=== PATIENT | female | born 1970 | race Caucasian/White ===

== ENCOUNTER → 2018-11-14 10:19 | Outpatient (CLI) | payer MEDICARE, MEDICAID, SELFPAY ==
[2018-11-14 10:23] LABS: Microscopic, Urine URINE MICROSCOPIC (MICROSCOPIC)
[2018-11-14 12:59] LABS: Appearance,Urine SL CLOUDY (Clear); Blood, Urine TRACE-I (Negative); Color,Urine YELLOW (Yellow); Glucose,Urine (UA) Negative (Negative); Ketones,Urine TRACE (Negative); Leukocyte Esterase,Urine 1+ (Negative); Nitrate,Urine Negative (Negative); PH,Urine 5.5 (5.0-8.5); Protein,Urine TRACE (Negative); Specific Gravity, Urine >= 1.030 (1.005-1.030); Urobilinogen,Urine 0.2 EU/dl (0.2)
[2018-11-14 13:04] LABS: Bilirubin,Urine Negative (Negative)
[2018-11-14 13:08] LABS: Bacteria,Urine 2+ /lpf; RBC,Urine Occasional #/hpf (0-3); Squamous Epithelial Cell,Urine Occasional #/hpf (0-5); WBC,Urine 20-50 #/hpf (0-3)
== END ==
PROVIDERS: Visit Provider Internal Medicine Adolescent Medicine
DX: R30.0 Dysuria (principal)
CPT/HCPCS: 81001; 87086; 87088; 87186

== ENCOUNTER → 2020-03-13 16:44 | Outpatient (CLI) | payer MEDICARE, MEDICAID, SELFPAY ==
[2020-03-13 17:33] LABS: Basophils # 0.1 K/mm3 (0-0.2); Basophils % 1.7 % (0.1-2.0); Eosinophils # 0.4 K/mm3 (0.0-0.4); Eosinophils % 4.6 % (0.1-12.0); Hematocrit 44.9 % (37.0-47.0); Hemoglobin 14.7 g/dL (12.2-16.2); Lymphocytes # 2.4 K/mm3 (0.7-4.5); Lymphocytes % 27.4 % (10-50); Mean Corpuscular HGB Conc 32.7 g/dL (31.8-35.4); Mean Corpuscular Hemoglobin 30.4 pg (27.0-31.2); Mean Corpuscular Volume 92.9 fl (81-99); Monocytes # 0.6 K/mm3 (0.1-1.0); Monocytes % 6.5 % (1.7-9.3); Neutrophils # 5.1 K/mm3 (1.8-7.8); Neutrophils % 59.8 % (37.0-80.0); Platelet Count 224 K/mm3 (142-424); Red Blood Count 4.83 M/mm3 (4.20-5.40); Red Cell Distribution Width 13.2 % (11.5-17.5); White Blood Count 8.6 K/mm3 (4.8-10.8)
[2020-03-13 18:20] LABS: Alanine Aminotransferase 19 U/L (12-78); Albumin Level 4.9 g/dl (3.5-5.0); Albumin/Globulin Ratio 1.5 (1.1-1.8); Alkaline Phosphatase 131 U/L (38-126); Aspartate Amino Transferase 38 U/L (14-36); Bilirubin,Total 0.4 mg/dl (0.2-1.3); Blood Urea Nitrogen 42 mg/dl (7-17); Calcium 10.3 mg/dl (8.4-10.2); Carbon Dioxide 29 mmol/L (22.0-30.0); Chloride 101 mmol/L (98-107); Estimated Glomerular Filt Rate 48 ml/min (>60); GFR (African American) 58 ML/MIN (>60); Globulin 3.3 g/dL (1.3-3.2); Glucose 106 mg/dl (74-100); Sodium 139 mmol/L (136-145); Total Protein,Serum 8.2 g/dl (6.3-8.2)
[2020-03-13 18:50] LABS: Valproic Acid, (Depakene) 105.2 ug/ml (50-100)
[2020-03-13 19:54] LABS: Hemoglobin A1C 5.5 % (4.0-6.0)
== END ==
PROVIDERS: PCP Internal Medicine Adolescent Medicine; Visit Provider Internal Medicine Adolescent Medicine
DX: G40.309 Generalized idiopathic epilepsy and epileptic syndromes, not intractable, without status epilepticus (principal); Z79.899 Other long term (current) drug therapy
CPT/HCPCS: 36415; 80053; 80164; 83036; 85025

== ENCOUNTER → 2020-07-08 11:22 | Outpatient (CLI) | payer MEDICARE, MEDICAID, SELFPAY ==
[2020-07-08 11:58] LABS: Basophils # 0.1 K/mm3 (0-0.2); Basophils % 0.5 % (0.1-2.0); Eosinophils # 0.4 K/mm3 (0.0-0.4); Eosinophils % 3.8 % (0.1-12.0); Hematocrit 42.4 % (37.0-47.0); Hemoglobin 13.8 g/dL (12.2-16.2); Lymphocytes # 1.7 K/mm3 (0.7-4.5); Lymphocytes % 16.6 % (10-50); Mean Corpuscular HGB Conc 32.5 g/dL (31.8-35.4); Mean Corpuscular Volume 89.2 fl (81-99); Mean Platelet Volume 7.4 fl (7.4-10.4); Monocytes # 0.8 K/mm3 (0.1-1.0); Monocytes % 8.2 % (1.7-9.3); Neutrophils # 7.3 K/mm3 (1.8-7.8); Neutrophils % 70.9 % (37.0-80.0); Platelet Count 242 K/mm3 (142-424); Red Blood Count 4.75 M/mm3 (4.20-5.40); Red Cell Distribution Width 13.6 % (11.5-17.5); White Blood Count 10.3 K/mm3 (4.8-10.8)
[2020-07-08 12:34] LABS: Chloride 105 mmol/L (98-107)
[2020-07-08 12:35] LABS: Potassium 5.2 mmoL/L (3.5-5.1); Sodium 139 mmol/L (136-145)
[2020-07-08 12:37] LABS: Alanine Aminotransferase 16 U/L (12-78); Alkaline Phosphatase 96 U/L (38-126); Aspartate Amino Transferase 22 U/L (14-36); Bilirubin,Total 0.3 mg/dl (0.2-1.3); Blood Urea Nitrogen 36 mg/dl (7-17); Estimated Glomerular Filt Rate 37 ml/min (>60); GFR (African American) 44 ML/MIN (>60); Glucose 132 mg/dl (74-100); Lipase 98 U/L (23-300)
[2020-07-08 12:38] LABS: Albumin Level 4.3 g/dl (3.5-5.0); Albumin/Globulin Ratio 1.7 (1.1-1.8); Calcium 9.4 mg/dl (8.4-10.2); Globulin 2.6 g/dL (1.3-3.2); Total Protein,Serum 6.9 g/dl (6.3-8.2)
[2020-07-08 15:25] LABS: Anion Gap 14.2 mEq/L (5-15); Carbon Dioxide 25 mmol/L (22.0-30.0)
[2020-07-09 15:12] LABS: Hemoglobin A1C 5.3 % (4.0-6.0)
== END ==
PROVIDERS: Visit Provider Internal Medicine Adolescent Medicine
DX: R10.13 Epigastric pain (principal); R73.9 Hyperglycemia, unspecified
CPT/HCPCS: 36415; 80053; 83036; 83690; 85025

== ENCOUNTER → 2021-04-06 15:16 | Outpatient (CLI) | payer MEDICARE, MEDICAID, SELFPAY ==
--- NOTE | 2021-04-06 15:23 | MM_ITS ---
PROCEDURE: MM DIG SCREENING MAMM BI W/CAD Digital Breast Tomosynthesis Included CLINICAL INDICATION: SCREENING The baseline exam, patient without complaints COMPARISON: No exams were available for comparison TECHNIQUE: Standard CC and MLO images and 3D Tomosynthesis was obtained. R2 CAD reviewed. FINDINGS: The breasts are composed primarily of minimal fibroglandular elements in the subareolar regions bilaterally. There are couple of benign-appearing microcalcifications in each breast there are 2 small benign-appearing nodular densities left breast. CAD markings were reviewed and they appear to be benign. IMPRESSION: Fatty type breast parenchyma with no suspicious lesions seen BI-RAD Category: 2 Benign Finding(s) FOLLOW-UP: 1YR 1 Year Follow-up (A letter has been sent to the patient regarding results of the study.) Dictated by: Dr. Singh Jay MD 04/08/2021 08:18 Dr. Singh Jay MD in [place] 04/08/2021 08:18
--- NOTE | 2021-04-06 15:23 | XR_ITS ---
PROCEDURE: XR KNEE RT 3V CLINICAL INDICATION: RT KNEE PAIN COMPARISON: CR [id number] KNEE-3 VIEWS-RT from 11/16/2013 CR [id number] XR knee LT 3V from 04/23/2018 FINDINGS: No fracture or dislocation. No lytic or blastic change. Mild osteopenia. Low-lying patella is noted. The joint spaces are otherwise well-preserved. No significant degenerative/arthritic changes. No erosive changes evident. Other findings:None. IMPRESSION: No acute findings. Dictated by: Hailey Salinas 04/06/2021 17:06 Hailey Salinas in [facility] 04/06/2021 17:06
== END ==
PROVIDERS: PCP Internal Medicine Adolescent Medicine; Visit Provider Internal Medicine Adolescent Medicine
DX: Z12.31 Encounter for screening mammogram for malignant neoplasm of breast (principal); M25.561 Pain in right knee
CPT/HCPCS: 73562; 77063; 77067

== ENCOUNTER 2022-03-01 12:44 | Emergency (ER) | payer MEDICARE, MEDICAID, SELFPAY ==
[2022-03-01] VITALS (10 sets, daily range): BP systolic 80–138; BP diastolic 48–97; PULSE 63–79; RESP 14–23; TEMP 36.7–36.8; O2SAT 94–99; BMI 29.9
--- NOTE | 2022-03-01 12:51 | XR_ITS ---
FINAL REPORT CLINICAL HISTORY: fever COMPARISON: 04/23/2018 FINDINGS: The heart size is normal. The mediastinum is normal. There is no focal infiltrate or edema. There are no pleural effusions. There is no pneumothorax. There is no osseous abnormality. IMPRESSION: No acute cardiopulmonary process Reviewed, Interpreted and Dictated by Taj You III, MD Transcribed by Дмитрий Lyles Authenticated and [facility]
--- NOTE | 2022-03-01 12:51 | ECG_ITS ---
APPROVED REPORT Exam: Resting ECG HR:76 bpm ECG Measurements Heart Rate 76 AXES NC 121 P 23 QRSd 101 QRS 92 QT 386 T 33 QTc 416 Conclusion SINUS RHYTHM POSSIBLE LEFT ATRIAL ENLARGEMENT [-0.1mV P-WAVE IN V1/V2] BORDERLINE RIGHT AXIS DEVIATION [QRS AXIS > 90] LOW QRS VOLTAGE IN PRECORDIAL LEADS [QRS DEFLECTION < 1.0 mV IN CHEST LEADS] NONSPECIFIC T-WAVE ABNORMALITY BORDERLINE ECG UNCONFIRMED REPORT Electronically signed by : Luis Armando Burroughs MD 03/02/2022 22:18:19
--- NOTE | 2022-03-01 12:52 | HMH.EDGENADL ---
ED Disposition Clinical Impression: Febrile illness, Urinary tract infection in female Disposition: Home, Self-Care Condition on Discharge: Good Instructions: DI for Urinary Tract Infection (UTI), DI for Fever (Symptom) -- Adult Additional Instructions: You have been evaluated for fever, UTI. Please take the biotics as prescribed. Take Tylenol and Motrin every 4-6 hours. Follow-up with your primary care doctor in 1 to 2 days for symptom recheck. Stay hydrated. Return to the emergency department at once for any new or worsening symptoms, cough, shortness of breath, chest pain, other concerns. Prescriptions: cephALEXin [cephALEXin 500mg capsule*] 500 mg PO Q6H #20 cap Transmission Status: [facility] Ibuprofen [Ibuprofen 600mg Tablet] 600 mg PO Q8 #12 tab Transmission Status: Received by [facility] ondansetron HCL [Ondansetron 4mg tab*] 4 mg PO Q6 PRN #12 tab PRN Reason: Nausea Transmission Status: [facility] Referrals: Provider,Referral, [Primary Care Provider] - Time of Disposition: 16:47 - Critical Care Critical Care Time: No Attestation: On , the high probability of a clinically significant, sudden or life threatening deterioration of the following system(s) required my full and direct attention, intervention and personal management. The time I documented below is in addition to time spent performing reported procedures but includes the following listed in this critical care notation. Medical Decision Making - Medical Records Medical records reviewed: Yes: I reviewed the patient's medical records. - [place] Inquiry Pt receiving controlled substance: No Vital Signs: 03/01/22 12:45 03/01/22 13:00 03/01/22 13:30 Temperature 98.3 F Temperature Source Oral Pulse Rate 74 68 Pulse Rate [Right Radial] 75 Respiratory Rate 16 16 16 Blood Pressure 124/77 119/74 Blood Pressure [Right Arm] 129/68 Blood Pressure Mean 92 95 Blood Pressure Mean [Right Arm] 88 Blood Pressure Source [Right Arm] Automatic Cuff Blood Pressure Position [Right Arm] Sitting 02 Sat by Pulse Oximetry 98 96 96 Oxygen Delivery Method Room Air 03/01/22 14:00 03/01/22 14:30 03/01/22 15:01 Temperature Temperature Source Pulse Rate 73 68 63 Pulse Rate [Right Radial] Respiratory Rate 18 14 20 Blood Pressure 135/85 138/97 H 84/65 L Blood Pressure [Right Arm] Blood Pressure Mean 103 110 71 Blood Pressure Mean [Right Arm] Blood Pressure Source [Right Arm] Blood Pressure Position [Right Arm] 02 Sat by Pulse Oximetry 94 L 96 95 Oxygen Delivery Method 03/01/22 15:31 Temperature Temperature Source Pulse Rate 79 Pulse Rate [Right Radial] Respiratory Rate 20 Blood Pressure 80/48 L Blood Pressure [Right Arm] Blood Pressure Mean 58 Blood Pressure Mean [Right Arm] Blood Pressure Source [Right Arm] Blood Pressure Position [Right Arm] 02 Sat by Pulse Oximetry 99 Oxygen Delivery Method - Lab Data Lab Results 03/01/22 12:51: Urine Color Yellow, Urine Appearance Clear, Urine pH 5.5, Ur Specific [place] >= 1.030, Urine Protein Negative, Urine Glucose (UA) Negative, Urine Ketones Negative, Urine Blood 3+, Urine Nitrate Positive, Urine Bilirubin Negative, Urine Urobilinogen 1.0, Ur Leukocyte Esterase 1+ A 03/01/22 12:51: Sodium 139, Potassium 4.7, Chloride 106, Carbon Dioxide 25, Anion Gap 12.7, BUN 44 H, Creatinine 1.50 H, Estimated Creat Clear 57, Estimated GFR 37 L, Est GFR ( Amer) 44 L, Glucose 162 H, Calcium 9.7, Total Bilirubin 0.4, AST 33, ALT 19, Alkaline Phosphatase 108, Troponin I < 0.01, Total Protein 7.5, Albumin 4.5, Globulin 3.0, Albumin/Globulin Ratio 1.5, Lipase 132 03/01/22 13:15: WBC 7.2, RBC 4.52, Hgb 13.4, Hct 37.8, MCV 83.7, MCH 29.6, MCHC 35.3, RDW 14.1, Plt Count 215, MPV 6.7 L, Neut % (Auto) 63.3, Lymph % (Auto) 24.8, Lamb % (Auto) 5.9, Eos % (Auto) 5.8, Baso % (Auto) 0.3, Neut # (Auto) 4.6, Lymph # (Aut
[2022-03-01 13:07] LABS: Chloride 106 mmol/L (98-107); Sodium 139 mmol/L (136-145)
[2022-03-01 13:08] LABS: Potassium 4.7 mmoL/L (3.5-5.1)
[2022-03-01 13:10] LABS: Alanine Aminotransferase 19 U/L (12-78); Alkaline Phosphatase 108 U/L (38-126); Anion Gap 12.7 mEq/L (5-15); Aspartate Amino Transferase 33 U/L (14-36); Bilirubin,Total 0.4 mg/dl (0.2-1.3); Blood Urea Nitrogen 44 mg/dl (7-17); Carbon Dioxide 25 mmol/L (22.0-30.0); Creatinine Clearance Estimated 57 mL/min (50-200); Estimated Glomerular Filt Rate 37 ml/min (>60); GFR (African American) 44 ML/MIN (>60); Lipase 132 U/L (23-300)
[2022-03-01 13:11] LABS: Albumin Level 4.5 g/dl (3.5-5.0); Albumin/Globulin Ratio 1.5 (1.1-1.8); Calcium 9.7 mg/dl (8.4-10.2); Glucose 162 mg/dl (74-100); Total Protein,Serum 7.5 g/dl (6.3-8.2)
[2022-03-01 13:23] LABS: Troponin I < 0.01 ng/ml (0.00-0.034)
[2022-03-01 13:25] LABS: Basophils % 0.3 % (0.1-2.0); Eosinophils # 0.4 K/mm3 (0.0-0.4); Eosinophils % 5.8 % (0.1-12.0); Hematocrit 37.8 % (37.0-47.0); Hemoglobin 13.4 g/dL (12.2-16.2); Lymphocytes # 1.8 K/mm3 (0.7-4.5); Lymphocytes % 24.8 % (10-50); Mean Corpuscular HGB Conc 35.3 g/dL (31.8-35.4); Mean Corpuscular Hemoglobin 29.6 pg (27.0-31.2); Mean Corpuscular Volume 83.7 fl (81-99); Mean Platelet Volume 6.7 fl (7.4-10.4); Monocytes # 0.4 K/mm3 (0.1-1.0); Monocytes % 5.9 % (1.7-9.3); Neutrophils # 4.6 K/mm3 (1.8-7.8); Neutrophils % 63.3 % (37.0-80.0); Platelet Count 215 K/mm3 (142-424); Red Blood Count 4.52 M/mm3 (4.20-5.40); Red Cell Distribution Width 14.1 % (11.5-17.5); White Blood Count 7.2 K/mm3 (4.8-10.8)
[2022-03-01 14:22] LABS: Coronavirus 19, PCR Not Detected (NotDetected); Influenza A, PCR Not Detected (NotDetected); Influenza B, PCR Not Detected (NotDetected)
[2022-03-01 16:08] LABS: Microscopic, Urine URINE MICROSCOPIC (MICROSCOPIC)
[2022-03-01 16:18] LABS: Appearance,Urine CLEAR (Clear); Bilirubin,Urine Negative (Negative); Blood, Urine 3+ (Negative); Color,Urine YELLOW (Yellow); Glucose,Urine (UA) Negative (Negative); Ketones,Urine Negative (Negative); Leukocyte Esterase,Urine 1+ (Negative); Nitrate,Urine POSITIVE (Negative); PH,Urine 5.5 (5.0-8.5); Protein,Urine Negative (Negative); Specific Gravity, Urine >= 1.030 (1.005-1.030)
--- NOTE | 2022-03-01 16:30 | PC.NURSE ---
contacted to check on status of u/a results, states they are about to release results now
[2022-03-01 18:13] LABS: Troponin I < 0.01 ng/ml (0.00-0.034)
[2022-03-01 18:27] LABS: Bacteria,Urine 4+ /lpf; Mucus,Urine 1+ /lpf
== END 2022-03-01 17:05 | disposition home or self-care (01) ==
PROVIDERS: Emergency Provider Emergency Medicine
DX: R50.9 Fever, unspecified (principal); N39.0 Urinary tract infection, site not specified; Z88.0 Allergy status to penicillin
CPT/HCPCS: 36415; 71045; 80053; 81001; 83690; 84484; 85025; 87086; 87088; 87186; 93005; 99283; C9803; U0003; U0005

== ENCOUNTER → 2022-05-11 10:49 | Outpatient (CLI) | payer MEDICARE, MEDICAID, SELFPAY ==
--- NOTE | 2022-05-11 10:54 | MM_ITS ---
PROCEDURE INFORMATION: Exam: MG Bilateral Screening 3D Mammography Exam date and time: 05/11/2022 10:53 AM Age: 52 years old Clinical indication: Screening. No family history of breast cancer. TECHNIQUE: Imaging protocol: Bilateral Screening tomosynthesis and 2D mammography including computer-aided detection (CAD) when performed. Limited positioning related to mobility impairment. COMPARISON: MG MM DIG SCREENING MAMM BI W/CAD 04/06/2021 3:33 PM FINDINGS: MAMMOGRAPHY: Breast composition: There are scattered areas of fibroglandular density. Mass: No suspicious mass. Architectural distortion: None. Calcifications: No suspicious calcifications. Asymmetric density: None. Skin thickening: None. Axillary adenopathy: None. Other: Some limitation in the outer right CC due to artifact, with technologist notation regarding limitations related to patient mobility. This accentuates the importance of clinical breast exam in the outer aspect of the right breast, and sonography could be added as well, if clinically indicated. IMPRESSION: see comment No mammographic evidence of malignancy. Annual screening is recommended unless otherwise clinically indicated. ASSESSMENT: BI-RADS Category 1: Negative
== END ==
PROVIDERS: Visit Provider Internal Medicine Adolescent Medicine
DX: Z12.31 Encounter for screening mammogram for malignant neoplasm of breast (principal)
CPT/HCPCS: 77063; 77067

== ENCOUNTER → 2023-02-22 10:05 | Outpatient (CLI) | payer MEDICARE, MEDICAID, SELFPAY ==
--- NOTE | 2023-02-22 10:10 | XR_ITS ---
FINAL REPORT CLINICAL HISTORY: LT ANKLE PAIN with swelling FINDINGS: Three views of the left foot show no evidence of acute displaced fracture or dislocation of the visualized bony architecture. 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 There is flattening of the heads of the 3rd and 4th metatarsals, that may be related to remote fracture or avascular necrosis. There are scattered mild degenerative changes most pronounced in the 1st digit. 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 Reviewed, Interpreted and Dictated by Maia Darby MD Transcribed by Soraya Cooley Authenticated and . [facility]
--- NOTE | 2023-02-22 10:10 | XR_ITS ---
FINAL REPORT CLINICAL HISTORY: LT ANKLE PAIN with swelling FINDINGS: Three views of the left ankle show no evidence of acute displaced fracture or dislocation of the visualized bony architecture. The joint spaces appear normal. Osteopenia is present. IMPRESSION: No acute bony abnormality identified. Reviewed, Interpreted and Dictated by Maia Darby MD Transcribed by Soraya Cooley Authenticated and [facility]
== END ==
PROVIDERS: PCP Nurse Practitioner Family; Visit Provider Physician Assistant
DX: M25.572 Pain in left ankle and joints of left foot (principal)
CPT/HCPCS: 73610; 73630

== ENCOUNTER 2024-06-26 15:34 | Outpatient (CLI) | payer MEDICARE, MEDICAID, SELFPAY ==
--- NOTE | 2024-06-26 15:38 | MM_ITS ---
PROCEDURE INFORMATION: Exam: MG Bilateral Screening 3D Mammography Exam date and time: 06/26/2024 3:24 PM Age: 54 years old Clinical indication: Screening examination. TECHNIQUE: Imaging protocol: Bilateral Screening tomosynthesis and 2D mammography including computer-aided detection (CAD) when performed. These are the best images possible, as the patient had trouble standing. COMPARISON: 1. MG MM DIG SCREENING MAMM BI W/CAD 05/11/2022 10:53 AM 2. MG MM DIG SCREENING MAMM BI W/CAD 04/06/2021 3:33 PM FINDINGS: MAMMOGRAPHY: Breast composition: The breasts are heterogeneously dense, which may obscure small masses. Mass: None. Architectural distortion: None. Calcifications: No suspicious calcifications. Asymmetric density: None. Skin thickening: None. Axillary adenopathy: None. Other findings: Limited study secondary to patient mobility. Correlation with a physical exam is important. IMPRESSION: No mammographic evidence of malignancy. Annual screening is recommended unless otherwise clinically indicated. ASSESSMENT: BI-RADS Category 1: Negative.
== END 2024-06-26 23:59 | disposition home or self-care (01) ==
LOC: RAD 15:35
PROVIDERS: PCP Internal Medicine Adolescent Medicine; Visit Provider Nurse Practitioner Family
DX: Z12.31 Encounter for screening mammogram for malignant neoplasm of breast (principal)
CPT/HCPCS: 77063; 77067

== ENCOUNTER 2024-09-16 12:01 | Emergency (ER) | payer MEDICARE, MEDICAID, SELFPAY ==
[2024-09-16] VITALS (9 sets, daily range): BP systolic 49–153; BP diastolic 31–136; PULSE 110–130; RESP 29–37; TEMP 37.7–38.3; O2SAT 81–95; BMI 30.7
--- NOTE | 2024-09-16 12:10 | ECG_ITS ---
APPROVED REPORT Exam: Resting ECG HR:129 bpm ECG Measurements Heart Rate 129 AXES SD 104 P 38 QRSd 71 QRS 118 QT 269 T 14 QTc 345 Conclusion SINUS TACHYCARDIA WITH SHORT SD INTERVAL POSSIBLE RIGHT VENTRICULAR HYPERTROPHY [SOME/ALL OF: PROMINENT R IN V1, LATE TRANSITION, RAD, RAMIREZ, SSS] ABNORMAL ECG No STEMI Electronically signed by : EMA JACOB, 09/17/2024 02:54:56
[2024-09-16 12:22] LABS: Coronavirus 19, PCR Not Detected (NotDetected); Influenza B, PCR Not Detected (NotDetected)
--- NOTE | 2024-09-16 12:25 | PC.NURSE ---
Dr. Michelle at bedside. Pt is unresponsive, coarse crackles and low sat. Pt placed on 4 lpm nc. Called radiology for stat cts. Pt is very difficult to obtain iv & and labs. Dr. Michelle is preparing for u/s IV placement. RT is attempting to obtain ABG
--- NOTE | 2024-09-16 12:42 | CT_ITS ---
PROCEDURE INFORMATION: Exam: CT Head Without Contrast Exam date and time: 09/16/2024 12:57 PM Age: 54 years old Clinical indication: Altered mental status/memory loss; Additional info: AMS TECHNIQUE: Imaging protocol: Computed tomography of the head without contrast. Radiation optimization: All CT scans at this facility use at least one of these dose optimization techniques: automated exposure control; mA and/or kV adjustment per patient size (includes targeted exams where dose is matched to clinical indication); or iterative reconstruction. COMPARISON: No relevant prior studies available. FINDINGS: Brain: There is no acute intracranial hemorrhage, mass effect, or midline shift. Moderate advanced for age cerebral and cerebellar substance loss is noted. Cerebral ventricles: There is mild ex vacuo dilation of the lateral and 3rd ventricles. Paranasal sinuses: There is no acute sinusitis. A small mucous retention cyst is noted in the right maxillary sinus. Mastoid air cells: The mastoid air cells are clear. Orbital cavities: The orbital structures are unremarkable. Bones: Hyperostosis frontalis interna is noted. Soft tissues: Unremarkable. IMPRESSION: 1. No acute intracranial abnormality. 2. Moderate advanced for age substance loss.
--- NOTE | 2024-09-16 12:43 | XR_ITS ---
PROCEDURE INFORMATION: Exam: XR Chest Exam date and time: 09/16/2024 12:51 PM Age: 54 years old Clinical indication: Dyspnea TECHNIQUE: Imaging protocol: Radiologic exam of the chest. Views: 1 view. COMPARISON: CR XR CHEST PORTABLE 03/01/2022 1:12 PM FINDINGS: Lungs: There is increased opacification within the right lung apex. This may be predominantly related to overlapping osseous and soft tissue structures, but underlying consolidation could be present. Follow-up PA and lateral radiographs are suggested. Pleural spaces: No pleural effusion. No pneumothorax. Heart/Mediastinum: No significant cardiac silhouette enlargement. Bones/joints: Unremarkable. IMPRESSION: There is increased opacification within the right lung apex. This may be predominantly related to overlapping osseous and soft tissue structures, but underlying consolidation could be present. Follow-up PA and lateral radiographs are suggested.
[2024-09-16] MEDS: LACTATED RINGERS 1000ML 1,710 ML 855 ML IV (12:45)
--- NOTE | 2024-09-16 12:45 | ED_ITS ---
Discharge Plan Disposition Chief Complaint: Altered Mental Status Prescriptions Prescriptions: No Action meloxicam 15 MG Tablet 15 mg PO BID tramadol [Ultram] 50 MG Tablet 50 mg PO BID gabapentin 300 MG Capsule 300 mg PO TID escitalopram oxalate [Lexapro] 10 MG Tablet 10 mg PO DAILY divalproex [Depakote ER] 250 MG Tablet 250 mg PO BID omeprazole 20 MG Tablet.Dr 20 mg PO DAILY ondansetron HCl 4 MG tablet 4 mg PO Q6 PRN (Reason: Nausea) Qty: 12 0RF ibuprofen 600 MG tablet 600 mg PO Q8 Qty: 12 0RF Referrals Follow up/Referrals: Luis Armando Burroughs MD [Primary Care Provider] - See instructions Clinical Impressions Clinical Impression: Septic shock, Acute encephalopathy, DENISE (acute kidney injury), Acute uremia, Injury of liver, Myocardial injury, Acute hypoxemic respiratory failure, Influenza A Instructions Patient Instructions: DI for Altered Mental Status Print Language Print Language: Welsh Discharge ED Provider: Tiburcio Michelle General Adult HPI General Chief complaint: Altered Mental Status Stated complaint: incoherent, congestion, fever, heavy breathing Time Seen by Provider: 09/16/24 12:05 Mode of Arrival: Wheelchair Source of Information: Relative and Medical Record Limitations: Altered Mental Status Description of Symptoms (Recalled from ER Triage Doc. by RN): Pt brought to ER by family & etienne. States that pt has been having nausea and diarrhea for a few days. She has also fallen during the night on (09/13) and family had to assist her up. States pt has not been responding since 0900 this am. States she is very lethargic. She has a hx of kidney dz. Pt has voided on herself. Family states pt has mental delayes but typically ambulates on own and does have speech. Pt has opened eyes and squeezes hand but with pain response and is not following History of Present Illness HPI narrative: Patient is a 54-year-old who has a history of cognitive delay but is brought in by her family and her caregiver for sudden and acute change in her mental status over the last few hours. She was very sick with nausea and diarrhea the last few days but had profound change in mental status this morning. She has been moving all of her extremity warning. No head injuries that they are definitively aware of but she did fall out of bed a few days ago. She is not on any anticoagulants or antiplatelet agents. No cough that were aware of. She has had a positive contact with the flu recently. Also has a history of urinary tract infections in the past. Related Data Home Medications ?Medication ?Instructions ?Recorded ?Confirmed divalproex 250 mg tablet,extended 250 mg PO BID mood 04/23/18 04/23/18 release 24 hr (Depakote ER) escitalopram oxalate 10 mg tablet 10 mg PO DAILY mood 04/23/18 04/23/18 (Lexapro) gabapentin 300 mg capsule 300 mg PO TID uknown 04/23/18 04/23/18 meloxicam 15 mg tablet 15 mg PO BID Pain 04/23/18 04/23/18 omeprazole 20 mg tablet,delayed 20 mg PO DAILY stomach 04/23/18 04/23/18 release tramadol 50 mg tablet (Ultram) 50 mg PO BID Pain 04/23/18 04/23/18 Previous Rx's ?Medication ?Instructions ?Recorded ibuprofen 600 mg tablet 600 mg PO Q8 #12 tabs 03/01/22 ondansetron HCl 4 mg tablet 4 mg PO Q6 PRN Nausea #12 tabs 03/01/22 Allergies Allergy/AdvReac Type Severity Reaction Status Date / Time Penicillins (PENICILLINS) Allergy Mild Verified 03/01/22 13:37 [facility] Disclaimer: The information contained in this section may have been updated after the patient was seen, as this information can be updated by other users. Social History Smoking Status: Unknown if ever smoked alcohol intake: never current occupational status: other Travel in the last 8 weeks: None Other Medical History Have you received the Flu Vaccine for this season: No Have you received the Pneumonia Vaccine: No ROS Obtained: Yes All systems reviewed & no additional complaints except as documented Physical Exam General General appearance: obtunded and other (Patient appears very ill and obtunded) Respiratory Respiratory exam: Present other (Course breath sounds unable to get a good pleth given the patient's peripheral perfusion this very poor) Cardiovascular Cardiovascular exam: Present other (Cool extremities that are cyanotic and mottled) Neurological Exam Neurological exam: Present alert and oriented X3 Expanded Neurological Exam Coma scale eye opening: Spontaneous Coma scale motor response: Withdraws to pain Coma scale verbal response: None Coma scale total: 9 Medical Decision Making Medical Records Screening: Per USPSTF and CDC recommendations, given the prevalence of disease in our region, it is our hospital?s policy to screen for HIV and viral Hepatitis for all patients aged 18 and over and those with ongoing risk factors. [place] Inquiry Pt receiving controlled substance: No Vital Signs: 09/16/24 12:03 09/16/24 13:21 09/16/24 13:31 Temperature 99.9 F H Temperature Source Axillary Pulse Rate [Right] 130 H Respiratory Rate 29 H 37 H 34 H Blood Pressure 153/136 H 131/115 H Blood Pressure [Right Arm] 104/81 L Blood Pressure Mean [Right Arm] 88 Blood Pressure Source [Right Arm] Automatic Cuff 02 Sat by Pulse Oximetry 81 L Oxygen Delivery Method Room Air Non-Rebreather Non-Rebreather Oxygen Flow Rate (LPM) 15 Lab Data Lab results reviewed: Yes I reviewed the patient's lab results. Lab Results 09/16/24 12:11: SARS-CoV-2 (PCR) Not detected, Influenza A Untype (PCR) Detected A, Influenza Type B (PCR) Not detected 09/16/24 12:33: WBC 11.2 H, RBC 4.51, Hgb 13.2, Hct 40.4, MCV 89.6, MCH 29.3, MCHC 32.7, RDW 14.5, Plt Count 174, MPV 10.8 H, Neut % (Auto) 59.8, Lymph % (Auto) 24.2, [place] % (Auto) 13.3 H, Eos % (Auto) 0.4, Baso % (Auto) 0.4, Neut # (Auto) 6.7, Lymph # (Auto) 2.7, [place] # (Auto) 1.5 H, Eos # (Auto) 0.0, Baso # (Auto) 0.1, Sodium 133 L, Potassium 5.5 H, Chloride 98, Carbon Dioxide 17 L, [place] 23.5 H, BUN 111 H*, Creatinine 9.10 H, Estimated Creat Clear 9, E stimated GFR 5 L*, Est GFR ( Amer) 5 L*, Glucose 124 H, Lactate 5.5 H, C alcium 7.9 L, Total Bilirubin 0.9, AST 498 H*, ALT 126 H, Alkaline Phosphatase 139 H, Troponin I 0.13 H, Total Protein 5.9 L, Albumin 3.5, Globulin 2.4, Albumin/Globulin Ratio 1.5 09/16/24 12:44: Urine Color Dark yellow, Urine Appearance Turbid, Urine pH 5.5, Ur Specific [place] 1.025, Urine Protein 1+ A, Urine Glucose (UA) Negative, Urine Ketones Negative, Urine Blood 3+ A, Urine Nitrate Negative, Urine Bilirubin 2+ A, Urine Urobilinogen 0.2, Ur Leukocyte Esterase 2+ A, Urine RBC 10-20, Urine WBC 50-100, Ur Squamous Epith Cells 5-10, Urine Bacteria 4+, Fine Granular Casts 3-5 09/16/24 12:33 09/16/24 12:33 Orders (Tests/Meds): ED MEDICATIONS Generic Name Dose Route Start Last Admin Trade Name Freq PRN Reason Stop Dose Admin Vancomycin/PEG/NADA/Lysine/Water 1.75 gm in 350 mls @ 175 mls/hr 09/16/24 13:00 Vancomycin 1.75gm/350ml (Peg) Premix IV 09/16/24 14:59 ONCE ONE Lactated Ringer's 1,710 mls @ 855 mls/hr 09/16/24 12:59 09/16/24 12:45 Lactated Ringer's 1000 Ml Bag 30 ml/kg infuse over 2 hr (1710 ml) 09/16/24 14:58 855 mls/hr IV Administration .Q2H ONE Discontinued Medications Generic Name Dose Route Start Last Admin Trade Name Freq PRN Reason Stop Dose Admin Acetaminophen 1,000 mg 09/16/24 12:42 09/16/24 13:51 Acetaminophen 1,000mg/100ml Vial IV 09/16/24 12:43 1,000 mg ONCE ONE Administration Lactated Ringer's 1,000 mls @ 999 mls/hr 09/16/24 12:45 Lactated Ringer's 1000 Ml Bag IV 09/16/24 13:45 .Q1H1M ZANDRA Cefepime HCl 2 gm/ Sodium 100 mls @ 200 mls/hr 09/16/24 12:44 09/16/24 13:10 Chloride IV 09/16/24 13:13 200 mls/hr ONCE ONE Administration Metronidazole 500 mg in 100 mls @ 100 mls/hr 09/16/24 12:44 09/16/24 13:51 Flagyl 500mg/100ml Ivpb IV 09/16/24 13:43 100 mls/hr ONCE ONE Administration Miscellaneous 1 each 09/16/24 12:45 Vancomycin Consult Request NOTAPPLIC 10/16/24 12:44 CONSULT PHARMACY ZANDRA ORDERS Category Date Time Status CT head/brain wo con Stat Cat Scan 09/16/24 12:42 Completed CXR --portable [XR chest portable] Stat Exams 09/16/24 12:43 Completed CBC w/Auto Diff [Complete Blood Count Auto Diff] Stat Lab 09/16/24 12:33 Completed CMP [Comprehensive Metabolic Panel] Stat Lab 09/16/24 12:33 Completed Diarrhea 23 Panel, PCR Stat Lab 09/16/24 12:43 Ordered HIV Combo Stat Lab 09/16/24 12:33 Received Hep C Ab with Reflex to RNA Stat Lab 09/16/24 12:33 Received Lactic Acid Stat Lab 09/16/24 12:33 Completed Rapid PCR Covid and Flu A/B Stat Lab 09/16/24 12:11 Completed Trop I [Troponin I] Stat Lab 09/16/24 12:33 Completed Troponin I Q3H Lab 09/16/24 15:45 Ordered Troponin I Q3H Lab 09/16/24 18:45 Ordered UA [Urinalysis and Microscopic] Stat Lab 09/16/24 12:44 Completed Blood Culture Stat Micro 09/16/24 12:33 Received Urine Culture Stat Micro 09/16/24 12:44 Received ABG [Arterial Blood Gas] Stat RT 09/16/24 12:43 Ordered Tissue Perfus/Sepsis Re-Eval Sepsis Re-Evaluation Performed: Yes Date Performed: 09/16/24 Time Performed: 14:19 Medical Decision Narrative: 54-year-old with above history and physical who is very ill and critical in appearance on my initial evaluation with poor and cool mottled extremities altered mental status with a GCS of 9 coarse breath sounds concerning for already having lost her airway protection mechanisms. She is febrile to 103 most likely septic shock I suspect probably secondary to her recent diarrheal illness or urinary tract infection but will get a broad infectious workup initiated and IV antibiotics and IV fluids have been initiated including bank cefepime and Flagyl. Patient required a peripheral ultrasound-guided IV. She has very poor vasculature. She may need a central line. Additionally patient does not appear to be protecting her airway and already discussed with her family and caregiver at the bedside they would like to hold off on intubation at the moment and I will keep a close eye on that. Reassessment 217 patient has multiorgan dysfunction including encephalopathy acute hypoxic respiratory failure acute liver injury acute kidney injury acute myocardial injury lactate of 5 all of this is consistent with septic shock. Patient was very difficult peripheral stick therefore I placed a central line for aggressive IV resuscitation as well as antibiotic administration. Please see procedure note. Patient's mental status has improved she is now talking some and improving and given the fact that her chest x-ray is also clear and that she seems to have supraglottic secretions which were causing her muffled airway sounds I do not believe that she is aspirating and I do believe she is now protecting her airway so we will hold off on intubation at the moment. I spoke with Dr. Horton with [facility] who accepted the patient for further evaluation and management specifically for probable emergent dialysis given her severe encephalopathy acute uremia and severe renal insufficiency. Patient does continue to make some urine which is reassuring. Patient remains guarded in critical condition but is improving. Family has been made aware of this. Given the weather we cannot fly and will be sending the patient by ground.\ Patient is positive for the flu and given the fact that she will be hospitalized will require Tamiflu but at the moment her mental status prevents us from giving oral medications. Procedures Central Line Placement Left IJ: Time Out Performed: Yes Patient Placed on Monitor/Pulse Ox: Yes MD Prep: mask, gown and gloves Central Line Prep: Chlorhexidine scrub Local Anesthetic: lidocaine 1% Amount of anesthesia used (mL): 5 Ultrasound Used for Placement: Yes Central Line Lumen Inserted: triple Post Procedure: sutured in place, good blood return, all ports aspirated, flushed, capped and sterile dressing applied Post Procedure X-Ray: tip of catheter in good position, no pneumothorax seen and other (Also limited bedside ultrasound of the RV using agitated saline confirmed placement) Patient Tolerated Procedure: well Complications: none Miscellaneous Procedure Procedure Performed: Ultrasound-guided IV Indication difficult IV access Patient was placed in the supine position was prepped and draped in sterile fashion. 20-gauge 48 mm Angiocath was used with axial and long axis planes on the ultrasound under direct visual guidance. The tip of the needle was observed being inserted directly into the vein itself and catheter was advanced under direct guidance. No significant complications. Critical Care Critical Care Time Critical Care Time: Yes Attestation: On 09/16/24, the high probability of a clinically significant, sudden or life threatening deterioration of the following system(s) required my full and direct attention, intervention and personal management. The time I documented below is in addition to time spent performing reported procedures but includes the following listed in this critical care notation. Total Time Total Critical Care Time: 65
[2024-09-16 12:46] LABS: Influenza A, PCR Detected (NotDetected)
[2024-09-16 12:51] LABS: Basophils # 0.1 K/mm3 (0-0.2); Basophils % 0.4 % (0.1-2.0); Eosinophils % 0.4 % (0.1-12.0); Hematocrit 40.4 % (37.0-47.0); Hemoglobin 13.2 g/dL (12.2-16.2); Lymphocytes # 2.7 K/mm3 (0.7-4.5); Lymphocytes % 24.2 % (10-50); Mean Corpuscular HGB Conc 32.7 g/dL (31.8-35.4); Mean Corpuscular Hemoglobin 29.3 pg (27.0-31.2); Mean Corpuscular Volume 89.6 fl (81-99); Mean Platelet Volume 10.8 fl (7.4-10.4); Monocytes # 1.5 K/mm3 (0.1-1.0); Monocytes % 13.3 % (1.7-9.3); Neutrophils # 6.7 K/mm3 (1.8-7.8); Neutrophils % 59.8 % (37.0-80.0); Platelet Count 174 K/mm3 (142-424); Red Blood Count 4.51 M/mm3 (4.20-5.40); Red Cell Distribution Width 14.5 % (11.5-17.5); White Blood Count 11.2 K/mm3 (4.8-10.8)
[2024-09-16 12:52] LABS: Microscopic, Urine URINE MICROSCOPIC (MICROSCOPIC)
[2024-09-16 12:57] LABS: Alanine Aminotransferase 126 U/L (12-78); Albumin Level 3.5 g/dl (3.5-5.0); Albumin/Globulin Ratio 1.5 (1.1-1.8); Alkaline Phosphatase 139 U/L (38-126); Anion Gap 23.5 mEq/L (5-15); Aspartate Amino Transferase 498 U/L (14-36); Bilirubin,Total 0.9 mg/dl (0.2-1.3); Calcium 7.9 mg/dl (8.4-10.2); Carbon Dioxide 17 mmol/L (22.0-30.0); Chloride 98 mmol/L (98-107); Creatinine Clearance Estimated 9 mL/min (50-200); Estimated Glomerular Filt Rate 5 ml/min (>60); GFR (African American) 5 ML/MIN (>60); Globulin 2.4 g/dL (1.3-3.2); Glucose 124 mg/dl (74-100); Potassium 5.5 mmoL/L (3.5-5.1); Sodium 133 mmol/L (136-145); Total Protein,Serum 5.9 g/dl (6.3-8.2)
[2024-09-16 12:59] LABS: Appearance,Urine TURBID (Clear); Blood, Urine 3+ (Negative); Color,Urine DARK YELLOW (Yellow); Glucose,Urine (UA) Negative (Negative); Ketones,Urine Negative (Negative); Leukocyte Esterase,Urine 2+ (Negative); Nitrate,Urine Negative (Negative); PH,Urine 5.5 (5.0-8.5); Protein,Urine 1+ (Negative); Specific Gravity, Urine 1.025 (1.005-1.030); Urobilinogen,Urine 0.2 EU/dl (0.2)
[2024-09-16 13:00] LABS: Blood Urea Nitrogen 111 mg/dl (7-17)
--- NOTE | 2024-09-16 13:03 | PC.NURSE ---
Dr. Michelle notified of critical BUN & creatinine
--- NOTE | 2024-09-16 13:06 | PC.NURSE ---
Patient back from CT
[2024-09-16 13:09] LABS: Troponin I 0.13 ng/ml (0.00-0.034)
[2024-09-16] MEDS: CEFEPIME HCL 2 GM in 0.9 % SODIUM CHLORIDE 100 ML IV (13:10)
[2024-09-16 13:11] LABS: Bilirubin,Urine 2+ (Negative); WBC,Urine 50-100 #/hpf (0-3)
[2024-09-16 13:12] LABS: Bacteria,Urine 4+ /lpf
[2024-09-16 13:13] LABS: Lactic Acid 5.5 mmol/L (0.7-2.1)
--- NOTE | 2024-09-16 13:14 | PC.NURSE ---
Dr. Michelle notified of critical lactic- Sepsis protocols already ordered.
--- NOTE | 2024-09-16 13:27 | PC.NURSE ---
Called [facility] per dr shields for possible transfer for septic shock, renal failure and multi organ dysfunction. [facility] transfer center said they would give us a call back when the provider is ready
--- NOTE | 2024-09-16 13:43 | PC.NURSE ---
DR COTA UPDATING FAMILY
--- NOTE | 2024-09-16 13:45 | PC.NURSE ---
CONSENT SIGNED BY FAMILY FOR CVC PLACEMENT. PROCEDURE EXPLAINED TO FAMILY DR DR. COTA. ALL QUESTIONS ANSWERED. FAMILY V/U
[2024-09-16] MEDS: METRONIDAZ/SOD CHL 500 MG/100 ML PIGGYBACK 100 MG IV (13:51)
[2024-09-16] MEDS: ACETAMINOPHEN 1,000MG/100ML VIAL 1000 MG IV (13:51)
--- NOTE | 2024-09-16 13:53 | PC.NURSE ---
Dr. Michelle at bedside for central line
--- NOTE | 2024-09-16 13:53 | PC.NURSE ---
[facility] ICU bed 7 Report number [id number] Call back for ETA [phone]
--- NOTE | 2024-09-16 14:16 | XR_ITS ---
PROCEDURE INFORMATION: Exam: XR Chest Exam date and time: 09/16/2024 2:15 PM Age: 54 years old Clinical indication: Device placement; Other: Cvl; Additional info: Post cvl XR TECHNIQUE: Imaging protocol: Radiologic exam of the chest. Views: 1 view. COMPARISON: CR XR CHEST PORTABLE 09/16/2024 12:51 PM FINDINGS: Tubes, catheters and devices: A left internal jugular central venous catheter probably terminates within the right atrium. Lungs: Minor scarring is present in the right lung apex. No focal consolidation is identified. Pleural spaces: No pleural effusion. No pneumothorax. Heart/Mediastinum: No significant cardiac silhouette enlargement. Bones/joints: Unremarkable. IMPRESSION: A left internal jugular central venous catheter probably terminates within the right atrium.
[2024-09-16 14:18] LABS: HIV Combo NEGATIVE (Negative)
--- NOTE | 2024-09-16 14:25 | PC.NURSE ---
XR AT BEDSIDE TO CONFIRM CVC PLACEMENT
[2024-09-16 14:29] LABS: ABG Base Excess -15.2 mmol/L (-2.4-2.3); ABG HCO3 14.1 mmhg (22.0-26.0); ABG Oxygen Saturation 61 % (90-100); ABG PCO2 44.3 mmhg (35.0-45.0); ABG TCO2 15.5 mmhg (23-27)
[2024-09-16 14:30] LABS: Allen's Test Patient Unable; Oxygen 100% NRB %
[2024-09-16 14:32] LABS: ABG PH 7.12 mmol/L (7.35-7.45)
[2024-09-16 14:33] LABS: ABG PO2 39.8 mmhg (80-100)
[2024-09-16 14:34] LABS: INR 0.92 (0.9-1.1); Prothrombin Time 10.4 seconds (10.1-12.5)
--- NOTE | 2024-09-16 14:58 | PC.NURSE ---
[facility] NOTIFIED OF TRANSFER
--- NOTE | 2024-09-16 15:05 | PC.NURSE ---
Called Report to Sarah WEINER @ [facility] ICU
[2024-09-16] MEDS: VANCOMYCIN/WATER FOR INJ (PEG) 1.75 GM/350 ML PIGGYBACK IV (16:08)
[2024-09-16] MEDS: VANCOMYCIN CONSULT REQUEST 1 EACH NOTAPPLIC (16:09)
[2024-09-16] MEDS: LACTATED RINGERS 1000ML 1,000 ML 999 ML IV (16:09)
[2024-09-16 16:47] LABS: Reflex Lactic Add Lactic Reflex
[2024-09-18 05:33] LABS: HCV Ab Non Reactive (Non Reactive)
--- NOTE | 2024-09-19 11:00 | PC.NURSE ---
URINE AND BLOOD CULTURE FAXED TO AT [phone]
== END 2024-09-16 16:42 | disposition short-term general hospital (02) ==
PROVIDERS: Physician Assistant; Emergency Provider Student in an Organized Health Care Education/Training Program; PCP Internal Medicine Adolescent Medicine
DX: J10.1 Influenza due to other identified influenza virus with other respiratory manifestations (principal); J96.01 Acute respiratory failure with hypoxia; I5A Non-ischemic myocardial injury (non-traumatic); S36.119A Unspecified injury of liver, initial encounter; N17.9 Acute kidney failure, unspecified; G93.40 Encephalopathy, unspecified; A41.9 Sepsis, unspecified organism; R41.82 Altered mental status, unspecified; R50.9 Fever, unspecified; R11.0 Nausea; R19.7 Diarrhea, unspecified; R53.83 Other fatigue
CPT/HCPCS: 70450; 71045; 80053; 81001; 82803; 83605; 84484; 85025; 85610; 86803; 87040; 87077; 87086; 87088; 87186; 87389; 87636; 93005; 96361; 96365; 96366; 96374; 99291; C1751; J0131; J3372; J7120

== ENCOUNTER 2024-10-15 14:39 | Outpatient (CLI) | payer MEDICARE, MEDICAID, SELFPAY ==
[2024-10-15 15:07] LABS: Basophils % 0.4 % (0.1-2.0); Eosinophils # 0.5 K/mm3 (0.0-0.4); Eosinophils % 6.1 % (0.1-12.0); Hematocrit 27.7 % (37.0-47.0); Hemoglobin 8.4 g/dL (12.2-16.2); Lymphocytes # 1.3 K/mm3 (0.7-4.5); Lymphocytes % 15.3 % (10-50); Mean Corpuscular HGB Conc 30.3 g/dL (31.8-35.4); Mean Corpuscular Hemoglobin 28.8 pg (27.0-31.2); Mean Corpuscular Volume 94.9 fl (81-99); Mean Platelet Volume 9.5 fl (7.4-10.4); Monocytes # 1.1 K/mm3 (0.1-1.0); Monocytes % 12.6 % (1.7-9.3); Neutrophils # 5.6 K/mm3 (1.8-7.8); Neutrophils % 65.1 % (37.0-80.0); Platelet Count 338 K/mm3 (142-424); Red Blood Count 2.92 M/mm3 (4.20-5.40); Red Cell Distribution Width 18.4 % (11.5-17.5); White Blood Count 8.5 K/mm3 (4.8-10.8)
[2024-10-15 15:23] LABS: Chloride 101 mmol/L (98-107); Potassium 4.8 mmoL/L (3.5-5.1); Sodium 136 mmol/L (136-145)
[2024-10-15 15:26] LABS: Blood Urea Nitrogen 15 mg/dl (7-17); Estimated Glomerular Filt Rate 58 ml/min (>60); GFR (African American) 70 ML/MIN (>60)
[2024-10-15 15:27] LABS: Anion Gap 12.8 mEq/L (5-15); Calcium 8.7 mg/dl (8.4-10.2); Carbon Dioxide 27 mmol/L (22.0-30.0); Glucose 126 mg/dl (74-100)
== END 2024-10-15 23:59 | disposition home or self-care (01) ==
LOC: LAB.DROPOF 14:39
PROVIDERS: PCP Internal Medicine Adolescent Medicine; Visit Provider Internal Medicine Adolescent Medicine
DX: N18.9 Chronic kidney disease, unspecified (principal)
CPT/HCPCS: 36415; 80048; 85025

== ENCOUNTER 2025-08-08 10:56 | Outpatient (CLI) | payer MEDICARE, MEDICAID, SELFPAY ==
--- NOTE | 2025-08-08 11:06 | XR_ITS ---
FINAL REPORT CLINICAL HISTORY: ACUTE TRAUMATIC PAIN fall pt unable to do most positions due to fused joints COMPARISON: None FINDINGS: 2 views of the left forearm were obtained. There is an unusual ankylosis of the radius, humerus, and ulna at the level of the elbow. There is a comminuted moderately displaced fracture of the distal radial diaphysis. There is a moderately displaced comminuted fracture with distal ulnar metadiaphysis. IMPRESSION: Acute fractures as above. Reviewed, Interpreted and Dictated by Moshe Hernandez MD Transcribed by Veronica Quiroz Authenticated and . [facility]
--- NOTE | 2025-08-08 11:06 | XR_ITS ---
FINAL REPORT CLINICAL HISTORY: ACUTE TRAUMATIC PAIN fall pt unable to do most positions due to fused joints COMPARISON: None FINDINGS: LEFT HAND Three views demonstrate moderate comminuted displaced fractures of the distal radius and ulna. There is a comminuted mildly impacted fracture of the base of the fifth proximal phalange. There is mild anterior displacement of the distal fracture fragment. IMPRESSION: Acute fractures as above. Reviewed, Interpreted and Dictated by Moshe Hernandez MD Transcribed by Veronica Quiroz Authenticated and [facility]
--- OUTSIDE RECORDS SUMMARY | 2025-08-08 12:15 | XMS_ITS | Clinical Summary ---
Author Organization [facility] Address [address] [place] [address] Care Team Providers Care Project Program Manager Name Role Phone Luis Armando Burroughs MD Primary Care Provider + [phone] Source Comments This information has been disclosed to you from confidential records protectedfrom disclosure by state law. You shall make no further disclosure of thisinformation without the specific, written, and informed release of theindividual to whom it pertains, or as otherwise permitted by law. A generalauthorization for the release of medical or other information is not sufficientfor the purposes of therelease of HIV test results or diagnoses. [id number] Allergies Active Allergy Reactions Criticality Noted Date Comments Penicillins Other (See Comments) 09/16/2024 Family member is not sure of reaction Medications dicyclomine (BENTYL) 20 mg tablet Take 1 tablet (20 mg total) by mouth 4 times a day with meals and at bedtime. Active omeprazole (PRILOSEC) 40 MG capsuleIndicat ions:gastroeso phageal reflux disease Take 1 capsule (40 mg total) by mouth every morning before breakfast. Indications: gastroesophageal reflux disease Active divalproex, extended release (DEPAKOTE XR) 500 MG 24 hr tablet Take 1 tablet (500 mg total) by mouth at bedtime. Active gabapentin (NEURONTIN) 800 MG tablet Take 1 tablet (800 mg total) by mouth 3 times a day. Active levothyroxine (SYNTHROID) 25 MCG tablet Take 1 tablet (25 mcg total) by mouth every morning before breakfast. Active linezolid (ZYVOX) 600 mg tablet Take 1 tablet (600 mg total) by mouth 2 times a day. 8 tablet 5 1:27 PM EST 09/25/19 25 Active wound dressings (TRIAD, ZINC OXIDE 20%,) Pste Apply 2 g topically if needed. 71 g 2 09/28/19 25 Active miconazole (MICOTIN) 2 % powder Apply topically 2 times a day. 85 g 09/28/19 25 Active divalproex, extended release (DEPAKOTE XR) 250 MG 24 hr tablet Take 1 tablet (250 mg total) by mouth daily. Take with divalproex 500mg daily 30 tablet 5 1:27 PM EST 09/29/19 25 Active Active Problems Problem Noted Date Diagnosed Date Blister of left foot 09/28/2024 Other dysphagia 09/28/2024 Hematoma 09/28/2024 CAP (community acquired pneumonia) 09/28/2024 Resolved Problems Problem Noted Date Diagnosed Date Resolved Date Influenza A 09/18/2024 09/28/2024 DENISE (acute kidney injury) 09/18/2024 Social History Tobacco Use Types Packs/Day Years Used Date Smoking Tobacco: Never Smokeless Tobacco: Never Tobacco Cessation:Counseling Given: Not Answered Alcohol Use Standard Drinks/Week Comments Never 0 (1 standard drink = 0.6 oz pur e alcohol) [facility] Utilities Answer Date Recorded In the past 12 months has e [employer], gas, oil, or water [employer] threatened to shut off services in your home? No 09/16/2024 AUDIT-C Answer Date Recorded Q1: How often do you have a drink containing alcohol? Never 09/16/2024 Q2: How many drinks containi ng alcohol do you have on a typical day when you are drinking? Patient does not drink Q3: How often do you have si x or more drinks on one occasion? Never 09/16/2024 Hunger Vital Sign Answer Date Recorded Within the past 12 months, y ou worried that your food would run out before you got the money to buy more. Never true 09/16/20 24 Within the past 12 months, t he food you bought just didn't last and you didn't have money to get more. Never true 09/16/2024 PRAPARE - Transportation Answer Date Re corded In the past 12 months, has l ack of transportation kept you from medical appointments or from getting medications? Patient unable to answer 09/16/2024 In the past 12 months, has l ack of transportation kept you from meetings, work, or from getting things needed for daily living? Patient unable to answer 09/16/2024 Housing Stability Vital Sign Answer Julius e Recorded In the last 12 months, was t here a time when you were not able to pay the mortgage or rent on time? No 09/16/2024 In the past 12 months, how m any times have you moved where you were living? 0 09/16/2024 At any time in the past [address] [facility], were you homeless or living in a [facility]p (including now)? No 09/16/2024 Comments Unknown Sex and Gender Information Value Date Recorded Sex Assigned at Not on file Legal Sex Female 1:25 PM EST Gender Identity Not on file Sexual Orientation Not on file Last Filed Vital Signs Vital Sign Reading Time Taken Comments Blood Pressure 147/72 09/28/2024 8:05 AM EST Pulse 89 09/28/2024 8:05 AM EST Temperature 37 C (98.6 F) 09/28/2024 8:05 AM EST Respiratory Rate 20 09/28/2024 8:05 AM EST Oxygen Saturation 95% 09/28/2024 10:55 AM EST Inhaled Oxygen Concentration 95% 09/28/2024 1 0:55 AM EST Weight 84.9 kg (187 lb 2.7 oz) 09/16/2024 7:46 P M EST Height 172.7 cm (5' 8 ) 09/16/2024 7:46 PM EST Body Mass Index 28.46 09/16/2024 7:46 PM EST Plan of Treatment Health Maintenance Due Date Last Done Comments Abnormal Colonoscopy Follow Up 1970 Depression Screening 1988 HIV Screening 1988 Immunization: DTaP/Tdap/Td (1 - Tdap) 1989 Immunization: Hepatitis B (1 of 3 - 19+ 3-dose series) 1989 Immunization: Pneumococcal (1 of 2 - PCV) 1989 Cervical Cancer Screening/Pa p Smear (MyChart) 2000 Mammogram (HeartThishart) 2010 Cologuard (FIT-DNA) 2015 Colonoscopy 2015 Colorectal Cancer Screening (MyChart) 2015 Stool Testing (gFOBT) 2015 Immunization: Zoster (1 of 2) 2020 Immunization: COVID-19 ( season) 2025 Immunization: Influenza (MyChart) (#1) 2025, 07/04/2017 Diabetes Screening 09/18/2027 09/18/2024 Hepatitis C Screening (MyChart) Completed Procedures Procedure Name Priority Date/Time Associated Diagnosis Comments HEMOGLOBIN A1C Routine 09/18/2024 4:13 AM EST HEPATITIS C ANTIBODY Routine 09/17/2024 11:46 AM EST from Last 3 Months or Most Recently Relevant to Health Maintenance Results * (ABNORMAL) Hemoglobin A1c (09/18/2024 4:13 AM EST) Hemoglobin A1C 6.1(H) 4.0 - 5.6 % 09/18/2024 5:35 AM EST HEALTH LAB Comment: Hemoglobin A1c Interpretation Guidelines: Normal: <5.7% Prediabetes: 5.7-6.4% Diabetes: >6.4% Diagnosis requires two independent tests unless clinical diagnosis is clear. Some clinical conditions, particularly anemias and hemoglobinopathies, may interfere with the diagnostic accuracy of hemoglobin A1c. The recommended goal for diabetic glycemic control (Hemoglobin A1c <7.0%) should be individualized based on duration of diabetes, age/life expectancy, comorbid conditions, known CVD or advanced microvascular complications, hypoglycemia unawareness, and other individual patient considerations. Whole Blood 09/18/2024 4:13 AM EST 09/18/2024 4:22 AM EST us Dejuan Dooley MD LAB BLOOD ORDERABLES Final Res ult [facility] [address] [place] [address], [facility] * Hepatitis C Antibody (09/17/2024 11:46 AM EST) HCV Ab Nonreactive Nonreactive 09/17/2024 2:45 PM EST HEALTH LAB Comment:Health Department no tified in accordance with reportable infectious disease guidelines. Serum 09/17/2024 11:4 6 AM EST 09/17/2024 12:01 PM EST Narrative [facility] - 09/17/2024 2:45 PM EST Antibodies to HCV not detected; does not exclude the possibility of exposure to HCV. us Krista BARGER LAB BLOOD ORDERABLES Mallorie reza Result [facility] [address] [place] [address], [facility] from Last 3 Months or Most Recently Relevant to Health Maintenance Insurance 64Rogerio YESSENIA SMITH [address] MEDICARE A AND B MEDICAID [place] Rogerio YESSENIA SMITH [id number] Advance Directives For more information, please contact: [phone] * Full Code (Latest Code Status on File) Date Activated Date Inactivated Comments 09/21/2024 10:05 AM 09/28/2024 5:29 PM Care Teams Project Program Manager Relationship Specialty Start Date End Date Luis Armando Burroughs MD [address] [place] [address] PCP - General Internal Medicine 09/17/24
== END 2025-08-08 23:59 | disposition home or self-care (01) ==
LOC: RAD 10:57
PROVIDERS: PCP Internal Medicine Adolescent Medicine; Visit Provider Nurse Practitioner Family
DX: G89.11 Acute pain due to trauma (principal); S60.222A Contusion of left hand, initial encounter; S52.502A Unspecified fracture of the lower end of left radius, initial encounter for closed fracture; S52.602A Unspecified fracture of lower end of left ulna, initial encounter for closed fracture; S62.617A Displaced fracture of proximal phalanx of left little finger, initial encounter for closed fracture; W19.XXXA Unspecified fall, initial encounter
CPT/HCPCS: 73090; 73130

== ENCOUNTER 2025-08-12 11:31 | Outpatient (CLI) | payer MEDICARE, MEDICAID, SELFPAY ==
--- NOTE | 2025-08-12 11:32 | XR_ITS ---
FINAL REPORT CLINICAL HISTORY: left wrist pain recent fall, best images due to patient. COMPARISON: 08/08/2025 FINDINGS: AP, oblique, and lateral views of the left wrist were obtained. Again seen is a comminuted intra-articular fracture of the distal radius and minimally displaced distal ulnar fracture. There appears to be no significant change since prior exam. No significant callus formation is noted. There continues to be soft tissue edema. IMPRESSION: No significant change. Reviewed, Interpreted and Dictated by Malissa Matias MD Transcribed by Marielos Barr Authenticated and . [facility]
--- NOTE | 2025-08-12 11:32 | XR_ITS ---
FINAL REPORT CLINICAL HISTORY: left hand fx pt unable to extend out fingers COMPARISON: 08/08/2025 FINDINGS: AP, oblique, and lateral views of the left hand were obtained. There has been no significant change in the fracture of the base of the 5th proximal phalanx. The fracture is also intra-articular. No significant increased callus formation is noted. There continues to be soft tissue edema. There is flexure deformity at the PIP joint of the 5th digit. Extensor tendon injury not excluded. IMPRESSION: No significant change 5th proximal phalanx fracture. Reviewed, Interpreted and Dictated by Malissa Matias MD Transcribed by Marielos Barr Authenticated and [facility]
--- OUTSIDE RECORDS SUMMARY | 2025-08-12 11:53 | XMS_ITS | Clinical Summary ---
Author Organization [facility] Address [address] [place] [address] Care Team Providers Care Rn Testing Name Role Phone Luis Armando Burroughs MD Primary Care Provider + [phone] Source Comments This information has been disclosed [...] therelease of HIV test results or diagnoses. [id number] Allergies Active Allergy Reactions Criticality Noted [...] drink = 0.6 oz pur e alcohol) [facility] Utilities Answer Date Recorded In the past 12 months has e [employer], gas, oil, or water [employer] threatened to shut off services in your [...] any time in the past 12 m [facility], were you homeless or living in a prison (including now)? No 09/16/2024 Comments Unknown Sex [...] Cancer Screening/Pa p Smear (MyChart) 2000 Mammogram ([employer] Services[employer]) 2010 Cologuard (FIT-DNA) 2015 Colonoscopy 2015 Colorectal [...] BLOOD ORDERABLES Final Res ult [facility] [address] [place] [address], [facility] * Hepatitis C Antibody (09/17/2024 11:46 AM [...] BARGER LAB BLOOD ORDERABLES Mallorie reza Result [facility] [address] [place] [address], [facility] from Last 3 Months or Most Recently Relevant to Health Maintenance Insurance 64Rogerio YESSENIA SMITH [address] MEDICARE A AND B MEDICAID [place] Rogerio YESSENIA SMITH [id number] Advance Directives For more information, please contact: [phone] * Full Code (Latest Code Status on File) Date Activated Date Inactivated Comments 09/21/2024 10:05 AM 09/28/2024 5:29 PM Care Teams Rn Testing Relationship Specialty Start Date End Date Luis Armando Burroughs MD [address] [place] [address] PCP - General Internal Medicine 09/17/24
== END 2025-08-12 23:59 | disposition home or self-care (01) ==
PROVIDERS: PCP Internal Medicine Adolescent Medicine; Visit Provider Physician Assistant Surgical
DX: S52.572D Other intraarticular fracture of lower end of left radius, subsequent encounter for closed fracture with routine healing (principal); S52.602D Unspecified fracture of lower end of left ulna, subsequent encounter for closed fracture with routine healing; S62.617D Displaced fracture of proximal phalanx of left little finger, subsequent encounter for fracture with routine healing; W19.XXXD Unspecified fall, subsequent encounter
CPT/HCPCS: 73110; 73130

== ENCOUNTER 2025-09-05 12:45 | Outpatient (CLI) | payer MEDICARE, MEDICAID, SELFPAY ==
--- NOTE | 2025-09-05 12:48 | XR_ITS ---
FINAL REPORT CLINICAL HISTORY: left hand fx COMPARISON: 08/12/2025 FINDINGS: LEFT HAND Three views demonstrate the hand is held in flexion. There are moderate changes of osteoarthritis. A comminuted fracture is noted at the base of the fifth proximal phalange with intra-articular extension. There appears to be callus formation consistent with healing. Fracture line remains visible. The visualized joint spaces are normally aligned. The soft tissues are unremarkable. IMPRESSION: Healing fracture base of the fifth proximal phalange Reviewed, Interpreted and Dictated by Moshe Hernandez MD Transcribed by Marielos Barr Authenticated and [facility] [place]
--- NOTE | 2025-09-05 12:48 | XR_ITS ---
FINAL REPORT CLINICAL HISTORY: left wrist fx COMPARISON: 08/12/2025 FINDINGS: LEFT WRIST Three views demonstrate comminuted displaced fractures of the distal radius and ulna. The fractures are unchanged in position. Ulnar positive variance is now noted. Callus formation is seen at the fracture margins. The visualized joint spaces are normally aligned. The soft tissues are unremarkable. IMPRESSION: Healing comminuted mildly displaced fractures as above. Reviewed, Interpreted and Dictated by Moshe Hernandez MD Transcribed by Marielos Barr Authenticated and [facility]
--- OUTSIDE RECORDS SUMMARY | 2025-09-05 12:54 | XMS_ITS | Clinical Summary ---
Author Organization [facility] Address [address] [place] [address] Care Team Providers Care Mail Sorting Supervisor Name Role Phone Luis Armando Burroughs MD Primary Care Provider + [phone] Source Comments This information has been disclosed [...] therelease of HIV test results or diagnoses. [id number] Allergies Active Allergy Reactions Criticality Noted Date [...] Date Resolved Date Influenza A 09/18/2024 09/28/2024 DENSIE (acute kidney injury) 09/18/2024 Social History Tobacco Use Types Packs/Day Years Used Date Smoking Tobacco: Never Smokeless Tobacco: Never Tobacco Cessation:Counseling Given: Not Answered Alcohol Use Standard Drinks/Week Comments Never 0 (1 standard drink = 0.6 oz pur e alcohol) [facility] Utilities Answer Date Recorded In the past 12 months has e [employer], gas, oil, or water [employer] threatened to shut off services in your [...] any time in the past 12 m [facility], were you homeless or living in a usp (including now)? No 09/16/2024 Comments Unknown Sex [...] Cancer Screening/Pa p Smear (MyChart) 2000 Mammogram ([employer]) 2010 Cologuard (FIT-DNA) 2015 Colonoscopy 2015 Colorectal [...] BLOOD ORDERABLES Final Res ult [facility] [address] [place] [address], [facility] * Hepatitis C Antibody (09/17/2024 11:46 [...] BARGER LAB BLOOD ORDERABLES Mallorie reza Result [facility] [address] [place] [address], [facility] from Last 3 Months or Most Recently Relevant to Health Maintenance Insurance 64Rogerio YESSENIA SMITH [id number] MEDICARE A AND B MEDICAID [place] Rogerio YESSENIA SMITH [id number] Advance Directives For more information, please contact: [phone] * Full Code (Latest Code Status on File) Date Activated Date Inactivated Comments 09/21/2024 10:05 AM 09/28/2024 5:29 PM Care Teams Mail Sorting Supervisor Relationship Specialty Start Date End Date Luis Armando Burroughs MD [address] [place] [address] PCP - General Internal Medicine 09/17/24
== END 2025-09-05 23:59 | disposition home or self-care (01) ==
LOC: RAD 12:46
PROVIDERS: PCP Internal Medicine Adolescent Medicine; Visit Provider Physician Assistant Surgical
DX: S62.617D Displaced fracture of proximal phalanx of left little finger, subsequent encounter for fracture with routine healing; S52.602D Unspecified fracture of lower end of left ulna, subsequent encounter for closed fracture with routine healing; X58.XXXD Exposure to other specified factors, subsequent encounter; M19.042 Primary osteoarthritis, left hand; S52.502D Unspecified fracture of the lower end of left radius, subsequent encounter for closed fracture with routine healing
CPT/HCPCS: 73110; 73130

== ENCOUNTER 2025-09-11 19:07 | Emergency (ER) | payer MEDICARE, MEDICAID, SELFPAY ==
[2025-09-11] VITALS (12 sets, daily range): BP systolic 124–161; BP diastolic 72–89; PULSE 92–119; RESP 12–18; TEMP 36.7; O2SAT 98–99; BMI 26.9
--- OUTSIDE RECORDS SUMMARY | 2025-09-11 19:45 | XMS_ITS | Clinical Summary ---
Author Organization [facility] Address [address] [place] [address] Care Team Providers Care Source Inspector Name Role Phone Luis Armando Burroughs MD Primary Care Provider + [phone] Source Comments This information has been disclosed [...] therelease of HIV test results or diagnoses. [id number] Allergies Active Allergy Reactions Criticality Noted [...] drink = 0.6 oz pur e alcohol) [facility] Utilities Answer Date Recorded In the past 12 months has e [employer], gas, oil, or water [employer] threatened to shut off services in your [...] were you homeless or living in a nursing home (including now)? No 09/16/2024 Comments Unknown Sex [...] Cancer Screening/Pa p Smear (MyChart) 2000 Mammogram (Amlog[employer]art) 2010 Cologuard (FIT-DNA) 2015 Colonoscopy 2015 Colorectal [...] BLOOD ORDERABLES Final Res ult [facility] [address] [place] [address], [facility] * Hepatitis C Antibody (09/17/2024 11:46 [...] BARGER LAB BLOOD ORDERABLES Mallorie reza Result [facility] [address] [place] [address], [facility] from Last 3 Months or Most Recently Relevant to Health Maintenance Insurance 64Rogerio YESSENIA SMITH [address] MEDICARE A AND B [place]ICAID [place] Rogerio Y[place] [id number] Advance Directives For more information, please contact: [phone] * Full Code (Latest Code Status on File) Date Activated Date Inactivated Comments 09/21/2024 10:05 AM 09/28/2024 5:29 PM Care Teams Source Inspector Relationship Specialty Start Date End Date Luis Armando Burroughs MD [address] [place] [address] PCP - General Internal Medicine 09/17/24
--- NOTE | 2025-09-11 20:27 | XR_ITS ---
PROCEDURE INFORMATION: Exam: XR Right Humerus Exam date and time: 09/11/2025 8:34 PM Age: 55 years old Clinical indication: Injury or trauma; Fall; Fracture, traumatic injury; Closed fracture; Humerus; Right; Additional info: Fall, pain TECHNIQUE: Imaging protocol: Radiologic exam of the right humerus. Views: 2 or more views. COMPARISON: CR XR ELBOW RT 2V 09/11/2025 8:30 PM FINDINGS: Bones/joints: Acute comminuted fracture of the distal humeral metadiaphysis. Soft tissues: There is surrounding soft tissue swelling. IMPRESSION: Acute comminuted fracture of the distal humeral metadiaphysis.
--- NOTE | 2025-09-11 20:27 | XR_ITS ---
PROCEDURE INFORMATION: Exam: XR Right Elbow Exam date and time: 09/11/2025 8:30 PM Age: 55 years old Clinical indication: Injury or trauma; Fall; Fracture, traumatic injury; Closed fracture; Elbow; Right TECHNIQUE: Imaging protocol: Radiologic exam of the right elbow. Views: 1 or 2 views. COMPARISON: CR XR ELBOW RT 2V 09/11/2025 8:30 PM FINDINGS: Bones/joints: Acute comminuted fracture of the distal humeral metadiaphysis with anterior displacement. The elbow joint/radial head is not well visualized. Large elbow joint effusion. Soft tissues: Soft tissue swelling of the posterior elbow. IMPRESSION: Acute comminuted fracture of the distal humeral metadiaphysis. The elbow joint/radial head are not well visualized, possibly impacted. Consider CT to further evaluate.
--- NOTE | 2025-09-11 20:27 | XR_ITS ---
PROCEDURE INFORMATION: Exam: XR Right Wrist Exam date and time: 09/11/2025 8:25 PM Age: 55 years old Clinical indication: Injury or trauma; Fall; Blunt trauma (contusions or hematomas); Wrist; Right; Additional info: Fall, pain TECHNIQUE: Imaging protocol: Radiologic exam of the right wrist. Views: 1 or 2 views. COMPARISON: CR XR WRIST RT 2V 09/11/2025 8:25 PM FINDINGS: Bones/joints: Cortical irregularity/lucency at the mid scaphoid waist. There is otherwise no acute displaced fracture. Joint spaces are preserved. Soft tissues: Unremarkable. IMPRESSION: Cortical irregularity at the mid scaphoid waist questionable for acute fracture versus normal variant. Correlate for point tenderness. Otherwise no acute displaced fracture.
--- NOTE | 2025-09-11 20:29 | HMH.EDGENADL ---
Discharge Plan Disposition Chief Complaint: Fall Prescriptions Prescriptions: No Action meloxicam 15 MG tablet 15 mg PO BID tramadol [Ultram] 50 MG tablet 50 mg PO BID gabapentin 300 MG capsule 300 mg PO TID escitalopram oxalate [Lexapro] 10 MG tablet 10 mg PO DAILY divalproex [Depakote ER] 250 MG tablet 250 mg PO BID omeprazole 20 MG tablet,delayed release (DR/EC) 20 mg PO DAILY ibuprofen 600 MG tablet 600 mg PO Q8 Qty: 12 0RF Referrals Follow up/Referrals: Luis Armando Burroughs MD [Primary Care Provider, Internal Medicine] - See instructions Stand Alone Forms Stand Alone Forms: Transfer Record - ED Instructions Patient Instructions: DI for Moderate Sedation, Moderate Sedation Print Language Print Language: Arabic Discharge ED Provider: Chloe Brown General Adult HPI <Denise Zimmerman APRN - Last Filed: 09/11/25 20:32> General Chief complaint: Fall Stated complaint: fell in hallway possible broken elbow Time Seen by Provider: 09/11/25 19:30 Mode of Arrival: Ambulatory Source of Information: Relative Description of Symptoms (Recalled from ER Triage Doc. by RN): Pt presents to ER for mechanical fall. Pt's technical healthcare consultant reports that patient was in the kitchen getting a drink when she lost balance and fell on R arm. Pt arrives with Right arm in a sling. 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 Pt also has known mental disability. Pt denies LOC or hitting her head. - thinners. pt unable to rate pain at this time History of Present Illness HPI narrative: Barb Dyer is a 55-year-old female past medical history significant for mental handicap delay who presents emergency room tonight after falling. Patient states that she tripped and fell walking into her bedroom at home. Fell onto her right elbow and right knee. Complaining of significant pain in the right elbow and right wrist. No pain at all on the right knee. No syncopal event, no dizziness or lightheadedness. Just tripped. 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 Family tells me that her right elbow is typically fused at a 90 degree angle, after her fall today, her arm was dangling straight. Patient denies any fever, cough, chest pain, shortness of breath, abdominal pain, bowel bladder dysfunction. She is accompanied by family who is at bedside. Not on any blood thinners. Did not hit her head, no LOC. Related Data Home Medications ?Medication ?Instructions ?Recorded ?Confirmed divalproex 250 mg tablet,extended 250 mg PO BID mood 04/23/18 09/05/25 release 24 hr (Depakote ER) escitalopram oxalate 10 mg tablet 10 mg PO DAILY mood 04/23/18 09/05/25 (Lexapro) gabapentin 300 mg capsule 300 mg PO TID uknown 04/23/18 09/05/25 meloxicam 15 mg tablet 15 mg PO BID Pain 04/23/18 09/05/25 omeprazole 20 mg tablet,delayed 20 mg PO DAILY stomach 04/23/18 09/05/25 release tramadol 50 mg tablet (Ultram) 50 mg PO BID Pain 04/23/18 09/05/25 Previous Rx's ?Medication ?Instructions ?Recorded ibuprofen 600 mg tablet 600 mg PO Q8 #12 tabs 03/01/22 Allergies Allergy/AdvReac Type Severity Reaction Status Date / Time Penicillins (PENICILLINS) Allergy Mild Anaphylaxis Verified 09/05/25 13:27 [facility] <Denise Zimmerman, [employer]NUCKLE [employer]ER - Last Filed: 09/11/25 20:32> [facility] Disclaimer: The information contained in this section may have been updated after the patient was seen, as this information can be updated by other users. Social History Smoking Status: Never smoker alcohol intake: never current occupational status: other Travel in the last 8 weeks?: None Have you lived/traveled outside [place] in past 30 days?: No Contact w/someone who lives/traveled outside [place] past 30 days?: No Exposure to someone with infectious disease in past 14 days?: No Do you have a fever (greater than 100.4 F or 38 C)?: No Have you tested positive for COVID-19?: No Exposed to someone with COVID-19 in past 14 days?: No Do you have a sore throat?: No Do you have a cough?: No Do you have any weakness?: No Do you have any diarrhea?: No Are you experiencing any unusual bleeding?: No Do you have any muscle aches/pain?: No Do you have any abdominal pain?: No Are you experiencing loss of taste or smell?: No Other Medical History Have you received the Flu Vaccine for this season: No Have you received the Pneumonia Vaccine: No <Denise Zimmerman APRN - Last Filed: 09/11/25 20:32> ROS Obtained: Yes All systems reviewed & no additional complaints except as documented Physical Exam <Denise Zimmerman APRN - Last Filed: 09/11/25 20:32> General General appearance: alert and in no apparent distress Head Head exam: atraumatic, normocephalic and normal inspection Eye Eye exam: Present normal appearance, PERRL and EOMI ENT ENT exam: Present normal exam, normal oropharynx, mucous membranes moist, TM's normal bilaterally and normal external ear exam Neck Neck exam: Present normal inspection, full ROM and trachea midline; Absent meningismus or lymphadenopathy Chest Chest inspection: Present normal inspection and symmetric chest wall rise; Absent tenderness Respiratory Respiratory exam: Present normal lung sounds bilaterally; Absent respiratory distress Cardiovascular Cardiovascular exam: Present regular rate and normal rhythm; Absent JVD Abdominal Exam Abdominal exam: Present soft and normal bowel sounds; Absent distention, tenderness or guarding Extremities Exam Extremities exam: Present other (Patient with tender to palpation on the right elbow and right wrist, able to wiggle fingers, 2+ pulses in her radial artery. Patient with multiple fused joints at baseline) Back Exam Back exam: Present normal inspection; Absent tenderness Neurological Exam Neurological exam: Present alert and other (Patient with mental handicap, alert to self, patient at baseline, no focal deficits) Psychiatric Psychiatric exam: Present normal affect and normal mood Skin Skin exam: Present warm, dry, intact and normal color Lymphatic Lymphatic Findings: no adenopathy <Chloe Brown DO - Last Filed: 09/12/25 01:09> Neurological Exam Neurological exam: Present other (Patient with mental handicap, alert to self, patient at baseline, no focal deficits, NVI in the RUE) Medical Decision Making <Denise Zimmerman APRN - Last Filed: 09/11/25 20:32> Medical Records Screening: Per USPSTF and CDC recommendations, given the prevalence of disease in our region, it is our hospital?s policy to screen for HIV and viral Hepatitis for all patients aged 18 and over and those with ongoing risk factors. Vital Signs: 09/11/25 20:11 09/11/25 20:11 09/11/25 20:15 Temperature Temperature Source Pulse Rate 102 H 100 H Pulse Rate [Right Radial] Respiratory Rate Blood Pressure 154/83 H Blood Pressure [Left Arm] Blood Pressure Mean 106 Blood Pressure Mean [Left Arm] Blood Pressure Source [Left Arm] Blood Pressure Position [Left Arm] 02 Sat by Pulse Oximetry 99 99 Oxygen Delivery Method Room Air Room Air 09/11/25 20:20 09/11/25 20:23 09/11/25 20:28 Temperature 98.1 F Temperature Source Oral Pulse Rate 102 H Pulse Rate [Right Radial] 102 H Respiratory Rate 18 Blood Pressure Blood Pressure [Left Arm] 154/83 H Blood Pressure Mean Blood Pressure Mean [Left Arm] 106 Blood Pressure Source [Left Arm] Automatic Cuff Blood Pressure Position [Left Arm] Sitting 02 Sat by Pulse Oximetry 99 99 99 Oxygen Delivery Method Room Air Room Air Room Air 09/11/25 20:30 09/11/25 20:53 09/11/25 21:00 Temperature Temperature Source Pulse Rate 119 H 102 H Pulse Rate [Right Radial] Respiratory Rate Blood Pressure 161/89 H Blood Pressure [Left Arm] Blood Pressure Mean 105 Blood Pressure Mean [Left Arm] Blood Pressure Source [Left Arm] Blood Pressure Position [Left Arm] 02 Sat by Pulse Oximetry 98 98 Oxygen Delivery Method Room Air Room Air 09/11/25 21:15 09/11/25 23:26 09/11/25 23:30 Temperature Temperature Source Pulse Rate 102 H Pulse Rate [Right Radial] Respiratory Rate 16 12 Blood Pressure Blood Pressure [Left Arm] Blood Pressure Mean Blood Pressure Mean [Left Arm] Blood Pressure Source [Left Arm] Blood Pressure Position [Left Arm] 02 Sat by Pulse Oximetry 98 Oxygen Delivery Method Room Air 09/11/25 23:30 Temperature Temperature Source Pulse Rate Pulse Rate [Right Radial] Respiratory Rate Blood Pressure 124/72 Blood Pressure [Left Arm] Blood Pressure Mean 89 Blood Pressure Mean [Left Arm] Blood Pressure Source [Left Arm] Blood Pressure Position [Left Arm] 02 Sat by Pulse Oximetry Oxygen Delivery Method Orders (Tests/Meds): ORDERS Category Date Time Status Elbow XR right 2 views [XR elbow RT 2V] Stat Exams 09/11/25 20:27 Completed Elbow XR right minimum 3 views [XR elbow RT min 3V] Exams 09/12/25 00:05 Taken Stat Humerus XR right [XR humerus RT] Stat Exams 09/11/25 20:27 Completed Wrist XR right 2 views [XR wrist RT 2V] Stat Exams 09/11/25 20:27 Completed <Chloe Kevin, DO - Last Filed: 09/12/25 01:09> Medical Records Medical records reviewed: Yes I reviewed the patient's medical records. [place] Inquiry Pt receiving controlled substance: No Vital Signs: 09/11/25 20:11 09/11/25 20:11 09/11/25 20:15 Temperature Temperature Source Pulse Rate 102 H 100 H Pulse Rate [Right Radial] Respiratory Rate Blood Pressure 154/83 H Blood Pressure [Left Arm] Blood Pressure Mean 106 Blood Pressure Mean [Left Arm] Blood Pressure Source [Left Arm] Blood Pressure Position [Left Arm] 02 Sat by Pulse Oximetry 99 99 Oxygen Delivery Method Room Air Room Air 09/11/25 20:20 09/11/25 20:23 09/11/25 20:28 Temperature 98.1 F Temperature Source Oral Pulse Rate 102 H Pulse Rate [Right Radial] 102 H Respiratory Rate 18 Blood Pressure Blood Pressure [Left Arm] 154/83 H Blood Pressure Mean Blood Pressure Mean [Left Arm] 106 Blood Pressure Source [Left Arm] Automatic Cuff Blood Pressure Position [Left Arm] Sitting 02 Sat by Pulse Oximetry 99 99 99 Oxygen Delivery Method Room Air Room Air Room Air 09/11/25 20:30 09/11/25 20:53 09/11/25 21:00 Temperature Temperature Source Pulse Rate 119 H 102 H Pulse Rate [Right Radial] Respiratory Rate Blood Pressure 161/89 H Blood Pressure [Left Arm] Blood Pressure Mean 105 Blood Pressure Mean [Left Arm] Blood Pressure Source [Left Arm] Blood Pressure Position [Left Arm] 02 Sat by Pulse Oximetry 98 98 Oxygen Delivery Method Room Air Room Air 09/11/25 21:15 09/11/25 23:26 09/11/25 23:30 Temperature Temperature Source Pulse Rate 102 H Pulse Rate [Right Radial] Respiratory Rate 16 12 Blood Pressure Blood Pressure [Left Arm] Blood Pressure Mean Blood Pressure Mean [Left Arm] Blood Pressure Source [Left Arm] Blood Pressure Position [Left Arm] 02 Sat by Pulse Oximetry 98 Oxygen Delivery Method Room Air 09/11/25 23:30 Temperature Temperature Source Pulse Rate Pulse Rate [Right Radial] Respiratory Rate Blood Pressure 124/72 Blood Pressure [Left Arm] Blood Pressure Mean 89 Blood Pressure Mean [Left Arm] Blood Pressure Source [Left Arm] Blood Pressure Position [Left Arm] 02 Sat by Pulse Oximetry Oxygen Delivery Method Lab Data Lab results reviewed: Yes I reviewed the patient's lab results. Orders (Tests/Meds): ORDERS Category Date Time Status Elbow XR right 2 views [XR elbow RT 2V] Stat Exams 09/11/25 20:27 Completed Elbow XR right minimum 3 views [XR elbow RT min 3V] Exams 09/12/25 00:05 Taken Stat Humerus XR right [XR humerus RT] Stat Exams 09/11/25 20:27 Completed Wrist XR right 2 views [XR wrist RT 2V] Stat Exams 09/11/25 20:27 Completed Medical Decision Narrative: Patient is a 55-year-old female with a mental delay and has her joints fused at baseline who presents to the emergency department after mechanical fall. Patient did not hit her head, did not lose consciousness, patient is not on any blood thinners. On arrival, patient was hemodynamically stable with unremarkable vital signs. Differential includes but not limited to fracture, dislocation, sprain, strain, amongst others. On exam, patient had a deformity of the right upper extremity. Patient was neurovascularly intact. Patient had no skin breakdown or open lacerations. Patient had a 2+ radial pulse in the right upper extremity. X-rays were obtained which showed a distal humerus fracture with significant angulation. I discussed with our orthopedics and unfortunately they are not available over the holiday. Given patient's significant displacement, angulation and unstable fracture, they recommended transfer. Patient was sedated and fracture reduction was attempted, some improvement was made with significant improvement in angulation but fracture was not able to be fully pulled at length. Patient's niece who is patient's caregiver was comfortable with plan for POV to for orthopedic evaluation. Patient was placed into a plaster splint sling was placed. Patient woke up appropriately after sedation and patient was sent in stable condition to for further evaluation. Patient remained neurovascular intact with a 2+ radial pulse after splint placement. Procedures <Chloe Brown, DO - Last Filed: 09/12/25 01:09> Orthopedic Splinting/Casting Injury #1: Side: right Upper Extremity Injury Location: upper arm Upper Extremity Immobilizer: posterior splint Post Cast/Splinting Neuro Status: intact Post Cast/Splinting Vasc Status: intact Procedural Sedation Mallampati Score:: Class I Indication: fracture/dislocation reduction ASA Class: I Preparation: groundwater monitoring technician applied, pulse oximeter, capnometry used and supplemental O2 applied Ketamine: IV Ketamine dose (mg): 75 IV Propofol dose (mg): 100 Patient Tolerated Procedure: well Complications: none Interventions: oxygen applied Critical Care <Chloe Brown DO - Last Filed: 09/12/25 01:09> Critical Care Time Critical Care Time: No
--- NOTE | 2025-09-11 23:17 | PC.NURSE ---
Called [facility] for a transfer. stated they would call back
[2025-09-12] VITALS (22 sets, daily range): BP systolic 115–186; BP diastolic 63–102; PULSE 85–102; RESP 8–33; TEMP 36.7–36.8; O2SAT 79–100
--- NOTE | 2025-09-12 00:05 | XR_ITS ---
PROCEDURE INFORMATION: Exam: XR Right Elbow Exam date and time: 09/12/2025 12:10 AM Age: 55 years old Clinical indication: Injury or trauma; Fall; Fracture, traumatic injury; Closed fracture; Humerus; Right; Post reduction images; Additional info: Humerus fracture TECHNIQUE: Imaging protocol: Radiologic exam of the right elbow. Views: 3 or more views. COMPARISON: CR XR ELBOW RT 2V 09/11/2025 8:30 PM FINDINGS: Bones/joints: Comminuted, displaced fracture distal humeral metadiaphysis. Fusion across ulnotrochlear and radiocapitellar joints. No dislocation. Joint effusion. Soft tissues: Soft tissue swelling. IMPRESSION: Distal humeral fracture.
--- NOTE | 2025-09-12 00:09 | PC.NURSE ---
Conscious sedation to be performed at this time. Crash cart with ambu bag at bedside. Suction readily available. Pt placed on keno clerk with end tidal CO2 on. Procedure consent gained, signed, and placed into patients chart. MD at bedside. Plan of care ongoing
--- NOTE | 2025-09-12 01:10 | PC.NURSE ---
Report called to Tray WEINER at [facility] at this time
[2025-09-12] MEDS: KETAMINE 50MG/1ML SYRINGE 75 MG IV (02:33)
== END 2025-09-12 02:00 | disposition other institution (70) ==
PROVIDERS: Emergency Provider Student in an Organized Health Care Education/Training Program; PCP Internal Medicine Adolescent Medicine
DX: S42.351A Displaced comminuted fracture of shaft of humerus, right arm, initial encounter for closed fracture (principal); M25.521 Pain in right elbow; M25.531 Pain in right wrist; Z98.1 Arthrodesis status; W01.10XA Fall on same level from slipping, tripping and stumbling with subsequent striking against unspecified object, initial encounter
CPT/HCPCS: 29105; 73060; 73070; 73080; 73100; 99152; 99153; 99285; J2704